=== PATIENT | female | born 2005 | race Two or more races ===

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

== ENCOUNTER → 2025-01-12 | Outpatient (CLI) | payer OTHER ==
[2025-01-12 09:56] LABS: Basophils # (auto) 0 10 ^3/uL (0-0.2); Basophils % (auto) 0.3 % (0.0-2.0); Eosinophils # (auto) 0 10 ^3/uL (0-0.8); Eosinophils % (auto) 0.4 % (0.0-7.0); Hematocrit 46.3 % (36.0-46.0); Hemoglobin 15.5 g/dL (12.2-16.2); Lymphocytes # (auto) 2.5 10 ^3/uL (0.4-5.4); Lymphocytes % (auto) 38.7 % (10.0-50.0); Mean Corpuscular Hemoglobin 28.4 pg (28.0-32.0); Mean Corpuscular Hgb Conc. 33.6 g/dL (32.0-36.0); Mean Corpuscular Volume 84.6 fL (80.0-100.0); Monocytes # (auto) 0.6 10 ^3/uL (0-1.3); Monocytes % (auto) 8.6 % (0.0-12.0); Neutrophils # (auto) 3.4 10 ^3/uL (1.6-8.6); Platelet Count (auto) 216 10^3/uL (140-450); Red Blood Cells 5.47 10^6/uL (4.0-5.20); Red Cell Distribution Width 13.4 % (11.8-14.3); White Blood Cell 6.5 10^3/uL (4.4-10.8)
[2025-01-12 10:16] LABS: Urine Blood Negative /uL (Negative); Urine Clarity Clear (Clear); Urine Color Yellow (Yellow); Urine Protein, UAD Negative (Negative); Urine Specific Gravity 1.028 (1.001-1.035); Urine Urobilinogen Normal (Negative); Urine pH 5.5 (5.0-9.0)
[2025-01-12 10:24] LABS: Alanine Aminotransferase 21 U/L (7-40); Albumin 4.6 g/dL (3.2-4.8); Alkaline Phosphatase 100 U/L (46-116); Anion Gap 10 (5-15); Aspartate Aminotransferase 18 U/L (13-40); Bilirubin, Total 0.6 mg/dL (0.2-1.0); Blood Urea Nitrogen 15 mg/dL (9-23); Calcium 9.8 mg/dL (8.7-10.4); Carbon Dioxide 24 mmol/L (20-31); Chloride 105 mmol/L (98-107); Glucose 99 mg/dL (74-106); Potassium 3.8 mmol/L (3.5-5.1); Sodium 139 mmol/L (136-145); Total Protein 7.5 g/dL (5.7-8.2)
[2025-01-12 10:37] LABS: Follicle Stimulating Hormone 7.19 IU/L (SEE BELOW)
[2025-01-12 10:38] LABS: Leuteinizing Hormone 37.2 IU/L
[2025-01-12 10:39] LABS: Free T4 (Free Thyroxine) 1.13 ng/dL (0.89-1.76)
== END | disposition home or self-care (01) ==
LOC: LAB 09:33
PROVIDERS: ATTEND Nurse Practitioner Family
DX: N91.2 Amenorrhea, unspecified (principal); R73.9 Hyperglycemia, unspecified; R10.9 Unspecified abdominal pain
CPT/HCPCS: 36415; 80053; 81003; 82626; 83001; 83002; 83540; 84439; 84443; 85025